=== PATIENT | female | born 1975 | race American Indian/Alaskan Native ===

== ENCOUNTER 2018-08-09 09:03 | Outpatient (CLI) | payer BC ==
--- NOTE | 2018-08-09 11:08 | Mammography Report ---
BILATERAL DIGITAL SCREENING MAMMOGRAM WITH CAD:08/09/18 CLINICAL: Baseline screening.History of bilateral reduction mammoplasty. FINDINGS: The breasts are heterogeneously dense, which may obscure small masses. A left asymmetry on the CC view requires additional imaging.No architectural distortion or suspicious calcifications. The right breast is negative. IMPRESSION: Left asymmetry requiring further workup. BI-RADS CATEGORY: 0 -- Needs Additional Imaging RECOMMENDATION: Recall for left rolled CC, LM and spot compression CC views and left breast ultrasound if needed. ACR BI-RADS MAMMOGRAPHIC CODES: 0 = Needs additional imaging evaluation; 1 = Negative; 2 = Benign; 3 = Probably benign; 4 = Suspicious; 5 = Malignant; 6 = Known biopsy-proven malignancy COMMENT: 1. Dense breast tissue, i.e., adenosis, fibrocystic changes, etc., may obscure an underlying neoplasm. 2. Approximately 10% of cancers are not detected with mammography. 3. A negative mammography report should not delay biopsy if a clinically suspicious mass is present.
== END 2018-08-09 09:04 | disposition home or self-care (01) ==
LOC: MAMMO 09:03
PROVIDERS: ATTEND Obstetrics & Gynecology
DX: Z12.31 Encounter for screening mammogram for malignant neoplasm of breast (principal)
CPT/HCPCS: 77067

== ENCOUNTER 2018-08-29 11:23 | Outpatient (CLI) | payer BC ==
--- NOTE | 2018-08-29 13:44 | Mammography Report ---
LEFT DIGITAL DIAGNOSTIC MAMMOGRAM : 08/29/18 11:23:00 CLINICAL: Recalled for asymmetry. COMPARISON:08/09/18 screening FINDINGS: Additional mammographic views were performed and are negative. IMPRESSION: Negative Mammogram. BI-RADS CATEGORY: 1 -- Negative RECOMMENDATION: Routine mammographic screening in one year. ACR BI-RADS MAMMOGRAPHIC CODES: 0 = Needs additional imaging evaluation; 1 = Negative; 2 = Benign; 3 = Probably benign; 4 = Suspicious; 5 = Malignant; 6 = Known biopsy-proven malignancy COMMENT: 1. Dense breast tissue, i.e., adenosis, fibrocystic changes, etc., may obscure an underlying neoplasm. 2. Approximately 10% of cancers are not detected with mammography. 3. A negative mammography report should not delay biopsy if a clinically suspicious mass is present. COMMENT: Patient follow-up letters are generated via our [employer] application.
== END 2018-08-29 11:24 | disposition home or self-care (01) ==
LOC: US 11:23
PROVIDERS: ATTEND Obstetrics & Gynecology
DX: R92.8 Other abnormal and inconclusive findings on diagnostic imaging of breast (principal)